=== PATIENT | female | born 2000 | race Caucasian/White ===

== ENCOUNTER 2018-05-18 16:10 | Emergency (ER) | payer OTHER ==
--- NOTE | 2018-05-18 17:11 | RADIOLOGY REPORT (SQ) ---
EXAM DESCRIPTION: KNEE LEFT 4 VIEW COMPLETED DATE/TIME: 05/18/2018 4:56 pm REASON FOR STUDY: Injury to L knee jumping on trampoline COMPARISON: None. NUMBER OF VIEWS: Four views left knee. LIMITATIONS: None. FINDINGS: There is no acute or significant bone, joint or soft tissue abnormality. OTHER: No other significant finding. IMPRESSION: NORMAL STUDY. TECHNICAL DOCUMENTATION: JOB ID: [id number] Reading location - IP/workstation name: [email or web address]
--- NOTE | 2018-05-18 18:11 | ER Document Report ---
HPI - HPI Patient complains to provider of: Left knee pain Time Seen by Provider: 05/18/18 17:03 Pain Level: 4 Context: Patient is a 18-year-old obese female presents to the emergency department complaining of left knee pain. Patient states [place] jumping when she landed on bilateral feet on the trampoline and felt a "pop" in her left knee. Patient states initially she was able to bend it but has had increased pain since. Patient states she has not been able to put any pressure on the left knee. Patient denies hitting her head, neck, back Or loss of consciousness. Past medical history: None Medications: None Allergies: None - CONSTITUTIONAL Constitutional: DENIES: Fever, Chills - MUSCULOSKELETAL Musculoskeletal: REPORTS: Extremity pain - left knee Past Medical History - General Information source: Patient - Social History Smoking Status: Never Smoker Chew tobacco use (# tins/day): No Frequency of alcohol use: None Drug Abuse: None Family History: Reviewed & Not Pertinent Patient has suicidal ideation: No Patient has homicidal ideation: No Renal/ Medical History: Denies: Hx Peritoneal Dialysis Past Surgical History: Reports: Hx Tonsillectomy - childhood Vertical Provider Document - CONSTITUTIONAL Agree With Documented VS: Yes Notes: GENERAL: Obese alert, interacts well. No acute distress. HEAD: Normocephalic, atraumatic. EYES: Pupils equal, round, and reactive to light. Extraocular movements intact. ENT: Oral mucosa moist, tongue midline. NECK: Full range of motion. Supple. Trachea midline. LUNGS: Clear to auscultation bilaterally, no wheezes, rales, or rhonchi. No respiratory distress. HEART: Regular rate and rhythm. No murmur ABDOMEN: Soft, non-tender. Non-distended. Bowel sounds present in all 4 quadrants. EXTREMITIES: Moves all 4 extremities spontaneously. No edema, normal radial and dorsalis pedis pulses bilaterally. No cyanosis. Patient has no pain in her left hip or left ankle. Patient has pain upon palpation left patellar region. Patient has pain upon valgus and varus movements no Lockman's laxity noted. BACK: no cervical, thoracic, lumbar midline tenderness. No saddle anesthesia, normal distal neurovascular exam. NEUROLOGICAL: Alert and oriented x3. Normal speech. cranial nerves II through XII grossly intact PSYCH: Normal affect, normal mood. SKIN: Warm, dry, normal turgor. No rashes or lesions noted. - INFECTION CONTROL TRAVEL OUTSIDE OF THE [place] IN LAST 30 DAYS: No Course - Re-evaluation Re-evalutation: 05/18/18 18:09 X-rays revealed no signs of fracture in the emergency department, discussed need for MRI with patient at bedside. Discussed knee immobilizer and crutch use. Return precautions discussed. - Vital Signs Vital signs: Temp Pulse Resp BP Pulse Ox 98.3 F 87 18 143/75 H 98 05/18/18 16:13 05/18/18 16:13 05/18/18 16:13 05/18/18 16:13 05/18/18 16:13 Discharge - Discharge Clinical Impression: Left knee injury Qualifiers: Encounter type: initial encounter Qualified Code(s): S89.92XA - Unspecified injury of left lower leg, initial encounter Condition: Stable Disposition: HOME, SELF-CARE Instructions: Use of Crutches ([facility]), Suspected Internal Knee Injury ([facility]), Ice & Elevation ([facility]), Knee Immobilizing Splint ([facility]) Additional Instructions: As we discussed you have been seen and treated in the emergency department for a knee injury. Please use knee immobilizer and crutches as needed. Please make sure you follow-up with your primary care provider or orthopedics for an MRI. Please return to the emergency room for any other concerning symptoms. Referrals: CHAZ SEBASTIAN MD [ACTIVE STAFF] - Follow up as needed
[2018-05-18 18:41] VITALS: BP 136/72
== END 2018-05-18 18:37 | disposition home or self-care (01) ==
LOC: ER 16:10
DX: S89.92XA Unspecified injury of left lower leg, initial encounter (principal); M25.562 Pain in left knee; X58.XXXA Exposure to other specified factors, initial encounter
CPT/HCPCS: 99283; 73564; L1830